=== PATIENT | male | born 1960 | race Caucasian/White ===

== ENCOUNTER → 2017-11-16 | Outpatient (CLI) | payer BC ==
--- NOTE | 2017-11-16 14:58 | XR ---
EXAMINATION TYPE: XR lumbar spine with bend/flex DATE OF EXAM: 11/16/2017 CLINICAL HISTORY: pain COMPARISON: NONE TECHNIQUE: AP and lateral views of the lumbar spine are submitted with the flexion and extension view s also obtained for a total of 5 images. FINDINGS: Severe degenerative disc space narrowing at L5-S1 with vacuum disc. There is endplate scler osis as well as ventral and dorsal spondylosis. Lower lumbar facet joint arthropathy. Mild degenerati ve narrowing at the remaining lumbar levels. Alignment is stable at neutral, flexion and extension. IMPRESSION: No acute fracture or dislocation is seen in the lumbar spine. Degenerative changes as di scussed ICD 10 NO FRACTURE, INITIAL EVALUATION
== END | disposition home or self-care (01) ==
LOC: RADXRMAIN 13:49
PROVIDERS: ATTEND Internal Medicine
DX: M47.817 Spondylosis without myelopathy or radiculopathy, lumbosacral region (principal)
CPT/HCPCS: 72114

== ENCOUNTER 2017-11-17 01:38 | Emergency (ER) | payer BC ==
[2017-11-17 01:44] VITALS: RESP 18
[2017-11-17] MEDS ORDERED: ORPHENADRINE 30 MG/ML 2 ML VIAL IM STA (02:04)
[2017-11-17] MEDS ORDERED: KETOROLAC 30 MG/ML 1 ML VIAL IM STA (02:04)
--- NOTE | 2017-11-17 02:09 | ED ---
Back Pain HPI - General Chief Complaint: Back Pain/Injury Stated Complaint: back pain Time Seen by Provider: 11/17/17 01:53 Source: patient Limitations: no limitations - History of Present Illness Initial Comments: 57-year-old male patient presents to the emergency department today for evaluation of lower back pain. Patient states he has been having issues for the last couple of weeks. States he did go in to see his primary care physician who did give him a steroid prescription and baclofen muscle relaxer. Patient states he has been taking this however over the last 2 days the symptoms seemed to be worsening. He states that tonight he sat down on the toilet was unable to get back up due to a drastic increase in the pain. He states it feels like his back is spasming. He is having tingling down the left lateral aspect of his leg to his ankle. He denies any loss of bowel or bladder control. He denies any saddle anesthesia. Patient states at home he has been applying warm moist heat. Performing gentle stretching exercises. Nothing seems to be working. Patient denies any recent rash, fever, chills, shortness breath, chest pain, abdominal pain, nausea, vomiting, diarrhea, constipation, dizziness, weakness, hematuria, dysuria, urinary urgency, urinary frequency, headache, visual changes, or any other complaints. - Related Data Home Medications Medication Instructions Recorded Confirmed Atorvastatin [Lipitor] 20 mg PO DAILY 10/05/14 11/17/17 Butalb/Acetaminophen/Caffeine 1 - 2 each PO Q4H PRN 10/05/14 11/17/17 [Fioricet 50-325-40] Citalopram Hydrobromide [CeleXA] 20 mg PO DAILY 10/05/14 11/17/17 Multivitamin [Men's Multi-Vitamin] 1 tab PO DAILY 10/05/14 11/17/17 Verapamil HCl [Calan] 120 mg PO DAILY 10/05/14 11/17/17 Zolpidem [Ambien] 5 mg PO HS PRN 10/05/14 11/17/17 Albuterol Sulfate [Proair 1 puff PO DAILY PRN 11/17/17 11/17/17 Respiclick] Ascorbic Acid [Vitamin C] 500 mg PO DAILY 11/17/17 11/17/17 Baclofen [Lioresal] 20 mg PO BID 11/17/17 11/17/17 Fluticasone/Salmeterol [Advair Hfa 1 puff INHALATION DAILY PRN 11/17/17 11/17/17 115-21 Mcg Inhaler] Latanoprost [Xalatan 0.005%] 1 drop BOTH EYES HS 11/17/17 11/17/17 predniSONE [Deltasone] 20 mg PO DAILY 11/17/17 11/17/17 Previous Rx's Medication Instructions Recorded Diazepam [Valium] 5 mg PO BID #10 tab 11/17/17 Allergies Allergy/AdvReac Type Severity Reaction Status Date / Time Sulfa (Sulfonamide Allergy Rash/Hives Verified 11/17/17 01:43 Antibiotics) Review of Systems ROS Statement: Those systems with pertinent positive or pertinent negative responses have been documented in the HPI. ROS Other: All systems not noted in ROS Statement are negative. Past Medical History Additional Past Medical History / Comment(s): migraine, History of Any Multi-Drug Resistant Organisms: None Reported Past Surgical History: Cholecystectomy, Orthopedic Surgery Additional Past Surgical History / Comment(s): right shoulder, Past Psychological History: No Psychological Hx Reported Smoking Status: Never smoker Past Alcohol Use History: Rare Past Drug Use History: None Reported General Exam Limitations: no limitations General appearance: alert, in no apparent distress, other (This is a well- developed, well-nourished adult male patient in no acute distress. Vital signs upon presentation are temperature 96.8F, pulse 67, respirations 18, blood pressure 174/99, pulse ox 97% on room air.) Eye exam: Present: normal appearance, PERRL, EOMI. Absent: scleral icterus, conjunctival injection, periorbital swelling ENT exam: Present: normal exam, normal oropharynx, mucous membranes moist Respiratory exam: Present: normal lung sounds bilaterally. Absent: respiratory distress, wheezes, rales, rhonchi, stridor Cardiovascular Exam: Present: regular rate, normal rhythm, normal heart sounds. Absent: systolic murmur, diastolic murmur, rubs, gallop, clicks GI/Abdominal exam: Present: soft, normal bowel sounds. Absent: distended, tenderness, guarding, rebound, rigid Back exam: Present: normal inspection. Absent: vertebral tenderness Neurological exam: Present: alert, oriented X3, CN II-XII intact Psychiatric exam: Present: normal affect, normal mood Skin exam: Present: warm, dry, intact, normal color. Absent: rash Course Vital Signs 11/17/17 01:40 Temperature 96.8 F L Pulse Rate 67 Respiratory 18 Rate Blood Pressure 174/99 O2 Sat by Pulse 97 Oximetry Medical Decision Making - Medical Decision Making 57-year-old male patient presented to the emergency department today for evaluation of low back pain with tingling down the left lateral leg. Physical examination is unremarkable. Patient is neurologically intact. We did perform lumbar CT without contrast that did show spondylosis. We did treat patient with Norflex and Toradol, this did not improve his symptoms very much was still having significant pain with movement. We did add and [place] and Valium. Upon reevaluation patient was feeling much better. Able to move without as much pain. We will given prescription for Valium haven't stopped taking the baclofen at home. He is instructed to follow-up with his primary care physician who does have physical therapy planned for him. Return parameters discussed in detail. He verbalized understanding and agrees with this plan. - Radiology Data Radiology results: report reviewed, image reviewed CT lumbar spine without contrast was obtained. Report was reviewed in its entirety. Impression by Dr. Glaser shows spondylotic changes L5-S1 with L5 spondylosis. No acute bony abdomen. No fracture. No significant spinal stenosis. Disposition Clinical Impression: Spasm of muscle of lower back Disposition: HOME SELF-CARE Condition: Good Instructions: Muscle Spasm (ED), Lower Back Exercises (ED) Additional Instructions: Apply warm moist heat to the lower back 20 minutes at a time at least 4 times daily. Take medications as directed. Follow-up with your primary care physician for recheck in 1-2 days. Return here immediately for any new, worsening, or concerning symptoms. Prescriptions: Diazepam [Valium] 5 mg PO BID #10 tab Referrals: Hiro Marie MD [Primary Care Provider] - 1-2 days Time of Disposition: 04:09
[2017-11-17] MEDS ORDERED: HYDROcodone/APAP 7.5-325MG 1 EACH TAB PO ONE (03:02)
--- NOTE | 2017-11-17 03:08 | CT ---
EXAMINATION TYPE: CT lumbar spine wo con DATE OF EXAM: 11/17/2017 2:55 AM COMPARISON: NONE HISTORY: lower back pain CT DLP: 1422.50 mGycm Automated exposure control for dose reduction was used. Unenhanced CT of the lumbar spine was performed. Bone and soft tissue window settings are submitted as well as coronal and sagittal reconstructions. Lumbar vertebra have normal alignment. There is narrowing of L5-S1 disc space with spurring of the en dplates. There is no compression fracture. There is moderate hypertrophic spurring anteriorly in the lower thoracic spine. The sacroiliac joints are intact. There is no lumbar paraspinal mass. I see no focal bone destruction. There is bilateral L5 spondylolysis. There is no spondylolisthesis. IMPRESSION: Spondylotic changes at L5-S1 with L5 spondylolysis. No acute bony abnormality. No fracture. No signif icant spinal stenosis.
[2017-11-17] MEDS ORDERED: DIAZEPAM 5 MG/ML 2 ML INJ IM ONE (03:22)
[2017-11-17 04:22] VITALS: BP 137/91; PULSE 58; TEMP 97.6
== END 2017-11-17 04:22 | disposition home or self-care (01) ==
LOC: EC 01:38
DX: M62.830 Muscle spasm of back (principal); Z79.52 Long term (current) use of systemic steroids; Z79.899 Other long term (current) drug therapy; Z88.2 Allergy status to sulfonamides
CPT/HCPCS: 72131; 99284; 96372 ×3; J2360; J3360; J1885

== ENCOUNTER → 2019-10-16 | Outpatient (CLI) | payer BC ==
--- NOTE | 2019-10-16 12:03 | XR ---
EXAMINATION TYPE: XR shoulder complete LT DATE OF EXAM: 10/16/2019 COMPARISON: NONE HISTORY: Pain TECHNIQUE: Shoulder examined in 3 projections FINDINGS: The humeral head articulates with the glenoid. The acromio-clavicular junction is normal. No acute fractures or dislocations are evident. There is stable within the metaphysis of the humerus. A follow up study can be performed 7-10 days from acute trauma for continued pain. IMPRESSION: 1. No acute osseous abnormality left shoulder. 2. Postsurgical changes.
== END | disposition home or self-care (01) ==
LOC: RADXRMAIN 11:32
PROVIDERS: ATTEND Family Medicine
DX: M25.512 Pain in left shoulder (principal); Z98.890 Other specified postprocedural states

== ENCOUNTER → 2020-03-04 | Outpatient (CLI) | payer BC ==
--- NOTE | 2020-03-04 22:57 | MR ---
EXAMINATION TYPE: MR shoulder LT wo con DATE OF EXAM: 03/04/2020 COMPARISON: Left shoulder x-ray October 16, 2019. HISTORY: Lt shoulder pain/arm numbness, hx surgery TECHNIQUE: Multiplanar, multisequence imaging of the left shoulder is performed without contrast. FINDINGS: Rotator Cuff: Supraspinatus and infraspinatus tendons are intact. Subscapularis tendon is felt intact . Rotator cuff muscle bulk is preserved. Acromioclavicular Joint: Moderate capsular hypertrophy. Inferior fat plane maintained. Distal acromio n morphology unremarkable. Glenohumeral Joint: Moderate to severe narrowing with synovial thickening. No significant effusion. N o significant spurring. Labrum: The labrum appears grossly intact given limitation of non-arthrogram study. Biceps Tendon: There is marked susceptibility artifact anterior proximal humeral metaphysis likely fr om prior biceps tendon repair. Difficulty in evaluating majority of biceps tendon. Intracapsular Port ion near labral anchor appears intact. Bone marrow signal: No focal abnormal marrow signal is appreciated. Other: No additional significant abnormality is appreciated. IMPRESSION: Suboptimal due to artifact from prior surgery. Glenohumeral joint arthropathy. No rotator cuff tear.
== END | disposition home or self-care (01) ==
LOC: RADMRIMAIN 13:46
PROVIDERS: ATTEND Family Medicine
DX: M12.812 Other specific arthropathies, not elsewhere classified, left shoulder (principal)

== ENCOUNTER → 2020-06-17 | Outpatient (CLI) | payer BC ==
--- NOTE | 2020-06-17 16:58 | XR ---
EXAMINATION TYPE: XR chest 2V DATE OF EXAM: 06/17/2020 CLINICAL HISTORY: R05 Cough R06.2 Wheezing. TECHNIQUE: Frontal and lateral view of the chest. COMPARISON: 10/12/2015 chest radiograph FINDINGS: The cardiomediastinal silhouette is within normal limits for size. Pulmonary vasculature i s normal. There is no focal air space opacity, pleural effusion, or pneumothorax seen. Degenerative c hanges of the spine.. IMPRESSION: No acute cardiopulmonary process.
== END | disposition home or self-care (01) ==
LOC: RADXRMAIN 10:04
PROVIDERS: ATTEND Family Medicine
DX: R05 Cough (principal); R06.2 Wheezing
CPT/HCPCS: 71046

== ENCOUNTER → 2021-08-02 | Outpatient (CLI) | payer BC ==
[2021-08-02 18:41] LABS: HCT 43.4 % (39.6-50.0); HGB 14.3 g/dL (13.0-17.0); MCH 28.8 pg (27.0-32.0); MCHC 32.9 g/dL (32.0-37.0); MCV 87.5 fL (80.0-97.0); Mean Platelet Volume 11.6 fL (9.5-12.2); Platelet Count 157 X 10*3/uL (140-440); RBC 4.96 X 10*6/uL (4.40-5.60); RDW 12.3 % (11.5-14.5); WBC 4.87 X 10*3/uL (4.50-10.00)
[2021-08-02 19:51] LABS: Creatine Kinase 310 U/L (35-257); GGT 67 U/L (0-73); LDH 248 U/L (120-246); LDL Cholesterol,Calculated 94.3 mg/dL (0.0-131.0)
[2021-08-02 21:33] LABS: ALT 36 U/L (10-49); AST 28 U/L (14-35); African American GFR (CKD) 111.7 (60.0-200.0); Albumin 4.3 g/dL (3.8-4.9); Albumin/Globulin Ratio 1.95 (1.60-3.17); Alkaline Phosphatase 93 U/L (41-126); BUN/Creat Ratio 17.38 Ratio (12.00-20.00); Blood Urea Nitrogen 13.9 mg/dL (9.0-27.0); Calcium 9.1 mg/dL (8.7-10.3); Carbon Dioxide 22.4 mmol/L (20.0-27.5); Chloride 107 mmol/L (96-109); Globulin 2.2 g/dL (1.6-3.3); Glucose 104 mg/dL (70-110); Non-African American GFR(CKD) 96.4 (60.0-200.0); Potassium 4.3 mmol/L (3.5-5.5); Sodium 142 mmol/L (135-145); Total Protein 6.5 g/dL (6.2-8.2)
== END | disposition home or self-care (01) ==
LOC: LABWHC1 11:07
PROVIDERS: ATTEND Family Medicine
DX: E78.5 Hyperlipidemia, unspecified (principal); R79.9 Abnormal finding of blood chemistry, unspecified; R73.03 Prediabetes
CPT/HCPCS: 36415; 80053; 80061; 82550; 82977; 83036; 83615; 85027

== ENCOUNTER → 2021-12-06 | Outpatient (CLI) | payer BC ==
[2021-12-06 08:26] VITALS: BP 147/90; PULSE 79; RESP 18; TEMP 98.2
--- NOTE | 2021-12-06 08:39 | P.CON ---
Consult Note - . Consult date: 12/06/21 Assessment/Plan:: HISTORY OF PRESENT ILLNESS: 61 yr old male as a referral from Dr Cedeno presents today with cervical pain secondary to disc bulges, DDD, spinal stenosis, neuroforaminal stenoses and myelomalacia for evaluation. Patient states neck pain is 1 out of 10 in intensity currently, stabbing, burning in character for the last several months with radiation of numbness through the left upper extremity. Pain is provoked with lifting, lateral flexion and extension. Pain is relieved with OTC medications, topicals, physical therapy currently, manual cervical traction during physical therapy, chiropractic treatments 1 month ago, home based s tretching regimen, repositioning and rest. Additional Past Medical History / Comment(s): Migraines History of Any Multi-Drug Resistant Organisms: None Reported Past Surgical History: Cholecystectomy, Orthopedic Surgery Past Psychological History: No Psychological Hx Reported Social History: negative x 3 All: See list Meds: See list REVIEW OF ORGAN SYSTEMS: CONSTITUTIONAL: No fevers or chills. No recent weight loss. HEENT: No visual acuity loss, eye pain, difficulties with hearing. No nosebleeds. No difficulty swallowing. RESPIRATORY: Denies any troubles with breathing or dyspnea on exertion. CARDIOVASCULAR: Denies any chest pain, palpitations, or recent heart attacks. GASTROINTESTINAL: Denies fatty food intolerance. Has change in bowel habits and gas bloat. GENITOURINARY: Denies any blood in urine. Has increased urinary frequency. NEUROLOGICAL: + numbness and tingling along the distal extremities. No seizure disorders or headaches. MUSCULOSKELETAL: + back pain SKIN: No skin cancer. No rash. PSYCHIATRIC: Denies current depression or suicidal thoughts. ENDOCRINE: Denies current thyroid disorders. Denies any blood sugar glucose intolerance. HEME/LYMPHATIC: Denies any lumps and bumps around the neck. History of deep venous thrombosis. ALLERGY/IMMUNOLOGY: No immunoglobulin therapy. No immune deficiencies. BREAST: Denies current breast lumps, pain or nipple discharge. Physical Examinations : Constitutional : Cooperative , not in acute distress . HEENT: Neck supple. No Lymphadenopathy. Normal thyroid size . Eyes no ptosis , no icterus, no photophobia . Hearing intact. Normal oropharynx. No Thrush. Respiratory : Chest clear to auscultations bilaterally. No wheezing. No rhonchi. Cardiovascular : Regular rate and rhythm , S1 / S2. No S3 . No S4. Gastrointestinal : Abdomen soft. No tenderness. Bowel sounds x 4. No organomegaly . Genitourinary : Deferred. Neurologic : Cranial nerve II to XII intact. No focal neurological deficits. Psychiatric : alert & oriented x 3. Matching mood & appropriate affect. Judgment & insight intact. Lymphatic No Lymphadenopathy. Musculoskeletal : Cervical Spine Motor strength in the deltoid and b iceps: Normal right side. Normal Left side Motor strength biceps and the wrist extensors: Normal right side . Normal left side Motor strength in the triceps muscle: Normal right side. Normal left side Deep tendon reflexes: Normal at the biceps. Normal at Brachioradialis. Normal at triceps Cervical facet loading test: positive bilaterally Spurling test: positive bilaterally Neck distraction test: positive on left Piter sign: positive bilaterally Lumbar spine Motor strength lower extremities ,thigh and legs 5/5 Right side , 5/5 Left side Deep tendon reflexes : Normal Knee Jerk. Normal Ankle Jerk Vertebral body tenderness over Lumbar facet Loading Test: positive Right / positive Left Range of motion of the lumbar spine Flexion 30 degrees, extension 10 degrees Straight Leg Raise test: Left/ Right positive at degree Cruz test: positive right / positive left. Severe tenderness over the Sacroiliac joint on the Right / Left sides Gaenslen test: positive bilaterally Seated flexion test: positive bilaterally. Imaging: MRI of the cervical spine without contrast from 10/12/21 reviewed Assessment/ Plan : Recommendation of L TFESI C5-C6. May need a series of injections, up to 3 within a 6 mo period, for optimal pain relief. Risks, benefits of procedure discussed and patient verbalized understanding. Denies aspirin or anti- coagulant use. Denies medical history of diabetes. All questions answered. I have spent greater than 50 minutes on patient care today. Dr Winston was available by phone for the evaluation of this patient. The time was used to review the medical records including relevant urine studies and Prescription history (MAPs), review of the available imaging, evaluation and examination of the patient, coordination of care with the medical staff and if applicable refer ring physicians, as well as creation of the medical record PQRS Measure Charge Sheet Mode of Arrival: Ambulatory - Pain Location Left Hand Non-Pharmacological Interventions: Chiropractic Treatment Neck Non-Pharmacological Interventions: Chiropractic Treatment, Home Exercise, Physical Therapy, Position/Reposition, Stretching Pharmacological Interventions: Scheduled Medication, Topical Medication PQRS Narrative: Smoking Status Never smoker Blood Pressure 147/90 Pain Intensity [Neck] 1 Pain Intensity [Left Hand] 2 Scale Used Numeric (1 - 10) Hx Alcohol Use (MH) Yes: Occasional Home Medications: Ambulatory Orders Atorvastatin [Lipitor] 20 mg PO DAILY 10/05/14 Butalb/Acetaminophen/Caffeine [Fioricet 50-325-40] 1 - 2 each PO Q4H PRN 10/05/14 Citalopram Hydrobromide [CeleXA] 20 mg PO DAILY 10/05/14 Multivitamin [Men's Multi-Vitamin] 1 tab PO DAILY 10/05/14 Albuterol Sulfate [Proair Respiclick] 1 puff PO DAILY PRN 11/17/17 Ascorbic Acid [Vitamin C] 500 mg PO DAILY 11/17/17 Fluticasone/Salmeterol [Advair Hfa 115-21 Mcg Inhaler] 1 puff INHALATION DAILY PRN 11/17/17 Latanoprost [Xalatan 0.005%] 1 drop BOTH EYES HS 11/17/17 predniSONE [Deltasone] 20 mg PO DAILY 11/17/17 ALPRAZolam [Xanax] 0.25 mg PO HS 12/03/21 Clopidogrel [Plavix] 75 mg PO DAILY 12/03/21 Famotidine [Pepcid] 20 mg PO BID 12/03/21 Verapamil Sr [Isoptin Sr] 120 mg PO DAILY 12/03/21
== END ==
LOC: PNWHC3 07:43
PROVIDERS: ATTEND Specialist
DX: M48.02 Spinal stenosis, cervical region (principal); M50.20 Other cervical disc displacement, unspecified cervical region; M50.30 Other cervical disc degeneration, unspecified cervical region; G43.909 Migraine, unspecified, not intractable, without status migrainosus; Z88.2 Allergy status to sulfonamides
CPT/HCPCS: 99211

== ENCOUNTER → 2022-12-06 | Outpatient (CLI) | payer BC ==
--- NOTE | 2022-12-06 08:06 | US ---
EXAMINATION TYPE: US abdomen complete DATE OF EXAM: 12/06/2022 COMPARISON: US CLINICAL HISTORY: R74.8 ABN LEVELS OF OTHER SERUM ENZYMES. Elevated LFT's TECHNIQUE: Multiple sonographic images of the abdomen are obtained. FINDINGS: EXAM MEASUREMENTS: Liver Length: 15.7 cm CBD: 0.8 cm Spleen: 9.9 cm Right Kidney: 10.6 x 4.7 x 4.5 cm Left Kidney: 10.3 x 5.0 x 4.4 cm Pancreas: wnl Liver: Heterogeneous Gallbladder: Surgically absent Evidence for sonographic Bonilla's sign: No CBD: wnl Spleen: wnl Right Kidney: wnl Left Kidney: wnl Upper IVC: wnl Abd Aorta: wnl, mid portion gassed out The liver is homogenous with increased echotexture. The intrahepatic portion of the IVC and proximal abdominal aorta are within normal limits. There is no evidence of cholelithiasis. Common bile duct is unremarkable. The visualized portions of the pancreas are homogenous. The spleen is unremarkabl e. Kidneys are symmetric and free of hydronephrosis. No renal lesions are seen. IMPRESSION: Hepatocellular disease commonly relating to hepatic steatosis.
== END | disposition home or self-care (01) ==
LOC: RADUSWWP 07:24
PROVIDERS: ATTEND Internal Medicine Geriatric Medicine
DX: K76.89 Other specified diseases of liver (principal); R74.8 Abnormal levels of other serum enzymes; R79.89 Other specified abnormal findings of blood chemistry
CPT/HCPCS: 76700

== ENCOUNTER → 2023-10-04 | Outpatient (CLI) | payer BC ==
[2023-10-04 15:47] LABS: Basophils # (A) 0.05 X 10*3/uL (0.00-0.10); Basophils % (A) 0.9 %; Eosinophils # (A) 0.23 X 10*3/uL (0.04-0.35); HCT 46.4 % (39.6-50.0); HGB 15.1 g/dL (13.0-17.0); Lymphocytes # (A) 1.28 X 10*3/uL (0.90-5.00); Lymphocytes % (A) 22.1 %; MCH 29.2 pg (27.0-32.0); MCHC 32.5 g/dL (32.0-37.0); MCV 89.6 FL (80.0-97.0); Monocytes # (A) 0.96 X 10*3/uL (0.20-1.00); Monocytes % (A) 16.6 %; NRBC Per 100 WBC 0 X 10*3/uL (0.00-0.01); Neutrophils # (A) 3.25 X 10*3/uL (1.80-7.70); Neutrophils % (A) 56.2 %; Platelet Count 209 X 10*3/uL (140-440); RBC 5.18 X 10*6/uL (4.40-5.60); WBC 5.78 X 10*3/uL (4.50-10.00)
[2023-10-04 16:10] LABS: ALT 31 U/L (10-49); AST 26 U/L (14-35); Albumin 4.3 g/dL (3.8-4.9); Albumin/Globulin Ratio 1.59 Ratio (1.60-3.17); Alkaline Phosphatase 109 U/L (41-126); Blood Urea Nitrogen 18.5 mg/dL (9.0-27.0); Calcium 9.3 mg/dL (8.7-10.3); Carbon Dioxide 24.6 mmol/L (21.6-31.8); Chloride 105 mmol/L (96-109); Globulin 2.7 g/dL (1.6-3.3); Glucose 109 mg/dL (70-110); Potassium 4.6 mmol/L (3.5-5.5); Sodium 140 mmol/L (135-145); Total Bilirubin 0.3 mg/dL (0.3-1.2)
== END | disposition home or self-care (01) ==
LOC: LABWHC1 10:33
PROVIDERS: ATTEND Internal Medicine Geriatric Medicine
DX: R21 Rash and other nonspecific skin eruption (principal)
CPT/HCPCS: 36415; 80053; 85025

== ENCOUNTER → 2024-01-04 | Outpatient (CLI) | payer BC ==
[2024-01-04 19:46] LABS: Alternaria alternata IgE <0.10 kU/L; Aspergillus fumagatus IgE <0.10 kU/L; Birch IgE <0.10 kU/L; Cat Epith & Dander IgE <0.10 kU/L; Cladosporian herbarum IgE <0.10 kU/L; Cockroach IgE <0.10 kU/L; Dermato. farinae IgE <0.10 kU/L; Dog Dander IgE <0.10 kU/L; Elm IgE <0.10 kU/L; Maple (Box Elder) IgE <0.10 kU/L; Oak IgE <0.10 kU/L; Ragweed,Common IgE <0.10 kU/L; Red Top (Bentgrass) IgE <0.10 kU/L
[2024-01-05 11:06] LABS: Alt. alternata IgE Class CLASS 0; Alternaria alternata IgE <0.10 kU/L (<0.10); Asperg. fumagatus IgE <0.10 kU/L (<0.10); Asperg. fumagatus IgE Class CLASS 0; Bermuda Grass IgE <0.10 kU/L (<0.10); Birch(Com.Silvr) IgE <0.10 kU/L (<0.10); Birch(Com.Silvr) IgE Class CLASS 0; Cat Epith & Dander IgE <0.10 kU/L (<0.10); Cat Epith & Dander IgE Class CLASS 0; Clad herbarum IgE <0.10 kU/L (<0.10); Clad herbarum IgE Class CLASS 0; Cockroach IgE <0.10 kU/L (<0.10); Cottonwood IgE <0.10 kU/L (<0.10); Dermato. Pteronyssinus Class CLASS 0; Dermato. Pteronyssinus IgE <0.10 kU/L (<0.10); Dermato. farinae IgE <0.10 kU/L (<0.10); Dermato. farinae IgE Class CLASS 0; Dog Dander IgE <0.10 kU/L (<0.10); Elm IgE <0.10 kU/L (<0.10); Maple (Box Elder) IgE <0.10 kU/L (<0.10); Maple (Box Elder) IgE Class CLASS 0; Mountain Cedar IgE <0.10 kU/L (<0.10); Mountain Cedar IgE Class CLASS 0; Mouse Urine IgE Class CLASS 0; Mouse Urine Proteins,IgE <0.10 kU/L (0.10); Nettle IgE <0.10 kU/L (<0.10); Nettle IgE Class CLASS 0; Oak IgE <0.10 kU/L (<0.10); Penicillium chrysogenum IgE <0.10 kU/L (<0.10); Penicillium chrysogenum IgE Cl CLASS 0; Rough Marshelder IgE <0.10 kU/L (<0.10); Rough Marshelder IgE Class CLASS 0; Timothy Grass IgE <0.10 kU/L (<0.10); Timothy Grass IgE Class CLASS 0; White Ash IgE Class CLASS 0
== END | disposition home or self-care (01) ==
LOC: LABWHC1 09:43
PROVIDERS: ATTEND Internal Medicine Critical Care Medicine
DX: J45.50 Severe persistent asthma, uncomplicated (principal)
CPT/HCPCS: 36415; 82785; 85008; 86003

== ENCOUNTER → 2024-01-15 | Outpatient (CLI) | payer BC ==
--- NOTE | 2024-01-16 08:39 | CT ---
EXAMINATION TYPE: CT chest w con DATE OF EXAM: 01/15/2024 COMPARISON: None HISTORY: Severe persistent asthma CT DLP: 492.5 mGycm, Automated exposure control for dose reduction was used. CONTRAST: Performed injected with 100 mL of Isovue 300. TECHNIQUE: Axial images were obtained at 5 mm thick sections. Reconstructed images are reviewed on Memento computer in the coronal plane. FINDINGS: Portion of the thyroid visualized is normal. No suspicious lung nodules or focal infiltrates are present. No suspicious peribronchial thickening o r narrowing is evident. There are several enlarged lymph nodes within the mediastinum measuring 1.1 x 1.2 cm including peria ortic, pretracheal and right peribronchial. The ascending aorta diameter at the level of the main pulmonary artery is 3.8 cm. The main pulmonary artery diameter at the bifurcation is 2.[address] sections are obtained through the upper abdomen. Abdomen is essentially unremarkable. IMPRESSION: 1. Scattered enlarged lymphadenopathy within the mediastinum. Follow-up is recommended. 2. No suspicious lung findings
== END | disposition home or self-care (01) ==
LOC: RADCTMAIN 07:18
PROVIDERS: ATTEND Internal Medicine Critical Care Medicine
DX: R59.0 Localized enlarged lymph nodes (principal); J45.50 Severe persistent asthma, uncomplicated
CPT/HCPCS: 71260; Q9967

== ENCOUNTER → 2024-08-05 | Outpatient (CLI) | payer BC ==
--- NOTE | 2024-08-05 09:46 | CT ---
EXAMINATION TYPE: CT chest w con DATE OF EXAM: 08/05/2024 8:54 AM COMPARISON: CT 01/15/2024 CLINICAL INDICATION: Male, 64 years old with history of R59.0 enlarged lymph nodes; PHH, enlarged lym ph nodes TECHNIQUE: Multiple axial images were obtained through the chest. Sagittal and coronal reformats were created for review. MIP was performed on a separate workstation. Contrast used:100 mL of Isovue 300 with IV Contrast (None if empty) Oral contrast used: (None if empty) CT DLP: 838 mGycm, Automated exposure control for dose reduction was used. FINDINGS: LUNGS/ PLEURA: No focal consolidation, pneumothorax or pleural effusion. AIRWAY: Patent and unremarkable. HEART: Size within normal limits. MEDIASTINUM: No gross evidence of adenopathy.r stable lymph nodes throughout the mediastinum includin g AP window 7 mm right low paratracheal 10 mm. VASCULATURE: No aortic aneurysm. MUSCULOSKELETAL: No acute osseous abnormalities SOFT TISSUES/LYMPH NODES: Unremarkable. LOWER NECK: No significant findings. UPPER ABDOMEN: The gallbladder surgically absent. Diffuse low-attenuation to the liver. IMPRESSION: 1. Stable lymph nodes of the mediastinum. When measuring in short axis diameter either relatively wi thin normal limits. 2. No acute thoracic process. 3. Hepatic steatosis. [facility], , 08/05/2024 9:43 AM
== END | disposition home or self-care (01) ==
LOC: RADCTMAIN 08:24
PROVIDERS: ATTEND Internal Medicine Critical Care Medicine
DX: K76.0 Fatty (change of) liver, not elsewhere classified (principal); R59.0 Localized enlarged lymph nodes
CPT/HCPCS: 71260; Q9967

== ENCOUNTER → 2024-08-20 | Day surgery (SDC) | payer BC ==
[2024-08-16 15:03] VITALS: BMI 38.8
[~2024-08-20] MED LIST: LIDOCAINE 1% (10MG/ML) FOR IV START INTRADERMA PRN; LIDOCAINE 1% INJ 10MG/ML (20 ML MDV) ONE; PROPOFOL 10 MG/ML 20 ML VIAL IV ONE
[2024-08-20] MEDS: IV FLUID CONTINUATION 1,000 ML IV ONE (10:56)
[2024-08-20 11:00] VITALS: TEMP 97.8
[2024-08-20] MEDS: LACTATED RINGERS 1,000 ML IV SCH (11:13)
--- NOTE | 2024-08-20 11:32 | P.PCN ---
Date of Procedure: 08/20/24 Procedure(s) Performed: BRIEF HISTORY: Patient is a 64-year-old, pleasant, white male for an upper endoscopy with possible dilation as a part evaluation of intermittent dysphagia to solids for the last 6 months duration.. In terms of this 2-3 times a day and often with meat and bread. Does have history of GERD and usually takes Rolaids. PROCEDURE PERFORMED: Esophagogastroduodenoscopy with biopsy and dilation PREOPERATIVE DIAGNOSIS: Dysphagia to solids for the last 6 months duration. IV sedation per anesthesia. PROCEDURE: After informed consent was obtained, the patient was brought into the endoscopy unit. IV sedation was administered by Anesthesia under continuous monitoring. Initially the Olympus GIF-140 video endoscope was inserted into the mouth. Esophagus intubated without any difficulty. It was gradually advanced into the stomach and duodenum and carefully examined. The bulb and the second part of the duodenum appeared normal. The scope at this time was withdrawn to the stomach, adequately insufflated with air, and upon careful examination, mucosa of the antrum, body, cardia and the fundus appeared normal. The scope was then withdrawn into the esophagus. The GE junction was located at 41 cm from the incisors. There was a distal esophageal stricture identified and this was dilated using 20 mm TTS balloon for 30 seconds. Also there was circumferential erythema of the GE junction consistent with LA grade a reflux esophagitis. The rest of the esophagus appeared normal. There were no erosions or ulcerations seen, multiple biopsies were done from mid and distal esophagus to rule out eosinophilic esophagitis and the patient tolerated the procedure well. IMPRESSION: 1. Distal esophagus stricture status post balloon dilation using 20 mm TTS balloon. 2. Circumferential erythema of the GE junction consistent with LA grade a reflux esophagitis. RECOMMENDATIONS: The findings of this examination were discussed with the patient as well as his family. He was advised to be on a clear liquid diet for 2 hours. Await biopsy results. Follow-up in the office in 2 to 3 weeks. In the meantime he will be started on omeprazole 20 mg daily and follow antireflux measures..
[2024-08-20 11:54] VITALS: BP 142/85; PULSE 64; RESP 18
== END | disposition home or self-care (01) ==
LOC: ORWHC2ENDO 10:19
PROVIDERS: ATTEND Internal Medicine Gastroenterology
DX: K22.2 Esophageal obstruction (principal); K21.00 Gastro-esophageal reflux disease with esophagitis, without bleeding; I10 Essential (primary) hypertension; E78.5 Hyperlipidemia, unspecified; J45.909 Unspecified asthma, uncomplicated; F41.9 Anxiety disorder, unspecified; G43.909 Migraine, unspecified, not intractable, without status migrainosus; Z86.73 Personal history of transient ischemic attack (TIA), and cerebral infarction without residual deficits; Z79.899 Other long term (current) drug therapy; Z88.2 Allergy status to sulfonamides; Z79.02 Long term (current) use of antithrombotics/antiplatelets; Z79.51 Long term (current) use of inhaled steroids
CPT/HCPCS: 88305; 43239; 43249; J2003; J2704; C1726